=== PATIENT | female | born 1975 | race Asian ===

== ENCOUNTER 2018-06-05 13:20 | Emergency (ER) | payer OTHER ==
[~2018-06-05] VITALS: Ht 160 cm; Wt 60.5 kg
[2018-06-05] MEDS ORDERED: IV NORMAL SALINE 1000ML BAG 1,000 ML IV ONE (13:45)
--- NOTE | 2018-06-05 13:49 | PHYS DOC ---
Past Medical History Past Medical History: No Pertinent History Past Surgical History: Additional Past Surgical Histo: X2 Drug Use: None Adult General Chief Complaint Chief Complaint: ABDOMINAL PAIN HPI HPI 42 y/o female presents to ER for c/o mid epigastric pain x3 days. Pt speaks primarily [place] so Anatoliy is providing some information. Translation phone used for communication. Patient's wanted to be the one using an translation phone so he communicated with his and then via the phone. Patient has had 4 episodes of vomiting since last night. Patient had regular bowel movement last night denying any dark tarry or bloody stools. Patient denies any urinary or vaginal symptoms. Patient denies any other family members with similar illnesses. Patient denies fever, chest pain, shortness of air, or swelling in extremities. She reports she did feel lightheaded at work denying fall or LOC. LMP 05/06/18. Denies any recent travel. Review of Systems Review of Systems Constitutional: Denies fever or chills [] Eyes: Denies change in visual acuity, redness, or eye pain [] HENT: Denies nasal congestion or sore throat [] Respiratory: Denies cough or shortness of breath [] Cardiovascular: Denies CP/palpitations GI: Denies bloody stools or diarrhea. Reports mid epig. pain with intermittent nausea and vomiting : Denies dysuria or hematuria [] Musculoskeletal: Denies back/neck pain or joint pain [] Integument: Denies rash,swelling or skin lesions [] Neurologic: Denies headache, focal weakness or sensory changes. Reports feeling light-headed at work denying LOC or fall All other systems were reviewed and found to be within normal limits, except as documented in this note. Current Medications Current Medications Current Medications Medications (Trade) Dose Ordered Sig/Perri Start Time Stop Time Status Last Admin Dose Admin Fentanyl Citrate (Fentanyl 2ml Vial) 25 mcg 1X ONCE 06/05/18 14:15 06/05/18 14:16 DC 06/05/18 14:19 25 MCG Iohexol (Omnipaque 300 Mg/ml) 75 ml 1X ONCE 06/05/18 15:00 06/05/18 15:01 DC 06/05/18 15:01 75 ML Ondansetron HCl (Zofran) 4 mg 1X ONCE 06/05/18 14:15 06/05/18 14:16 DC 06/05/18 14:18 4 MG Sodium Chloride 1,000 ml @ 1,000 mls/hr 1X ONCE 06/05/18 13:45 06/05/18 14:44 DC 06/05/18 14:02 1,000 MLS/HR Allergies Allergies Allergies Coded Allergies Type Severity Reaction Last Updated Verified tuberculin,PPD,multi-puncture Allergy Intermediate 06/05/18 Yes Physical Exam Physical Exam Constitutional: Well developed, well nourished, no acute distress, non-toxic appearance. [] HENT: Normocephalic, atraumatic, mucous membranes pink/dry, no oral exudates, nose normal. [] Eyes: pupils equal, conjunctiva normal, no discharge. [] Neck: Normal range of motion, no tenderness, supple Cardiovascular:Heart rate regular rhythm, no murmur [] Lungs & Thorax: Bilateral breath sounds clear to auscultation. Resp. equal/ nonlabored Abdomen: Bowel sounds normal, soft-nondistended with no rigidity, tender to palpation mid epigastric, no masses, no pulsatile masses. No rebound tenderness[ ] Skin: Warm, dry, no erythema, no rash. [] Back: No tenderness, no CVA tenderness. [] Extremities: No tenderness, no cyanosis, no clubbing, ROM intact, no edema. [] Neurologic: Alert and oriented X 3, normal motor function, normal sensory function, no focal deficits noted. [] Psychologic: Affect normal, judgement normal, mood normal. [] Current Patient Data Vital Signs Vital Signs Date Time Temp Pulse Resp B/P (MAP) Pulse Ox O2 Delivery O2 Flow Rate FiO2 06/05/18 16:28 66 17 140/94 (109) 98 Room Air 06/05/18 13:32 98.2 98.2 Lab Values Laboratory Tests Test 06/05/18 13:40 06/05/18 13:48 06/05/18 14:05 Urine Collection Type Unknown Urine Color Yellow Urine Clarity Clear Urine pH 6.5 Urine Specific [place] >=1.030 Urine Protein Negative mg/dL (NEG-TRACE) Urine Glucose (UA) Negative mg/dL (NEG) Urine Ketones (Stick) Negative mg/dL (NEG) Urine Blood Negative (NEG) Urine Nitrite Negative (NEG) Urine Bilirubin Negative (NEG) Urine Urobilinogen Dipstick 1.0 mg/dL (0.2 mg/dL) Urine Leukocyte Esterase Negative (NEG) Urine RBC 0 /HPF (0-2) Urine WBC 0 /HPF (0-4) Urine Squamous Epithelial Cells Few /LPF Urine Bacteria 0 /HPF (0-FEW) Urine Mucus Slight /LPF Urine Test Negative (NEG) White Blood Count 9.7 x10^3/uL (4.0-11.0) Red Blood Count 4.58 x10^6/uL (3.50-5.40) Hemoglobin 14.2 g/dL (12.0-15.5) Hematocrit 40.2 % (36.0-47.0) Mean Corpuscular Volume 88 fL (79-100) Mean Corpuscular Hemoglobin 31 pg (25-35) Mean Corpuscular Hemoglobin Concent 35 g/dL (31-37) Red Cell Distribution Width 13.1 % (11.5-14.5) Platelet Count 279 x10^3/uL (140-400) Neutrophils (%) (Auto) 64 % (31-73) Lymphocytes (%) (Auto) 26 % (24-48) Monocytes (%) (Auto) 8 % (0-9) Eosinophils (%) (Auto) 2 % (0-3) Basophils (%) (Auto) 0 % (0-3) Neutrophils # (Auto) 6.2 x10^3uL (1.8-7.7) Lymphocytes # (Auto) 2.5 x10^3/uL (1.0-4.8) Monocytes # (Auto) 0.7 x10^3/uL (0.0-1.1) Eosinophils # (Auto) 0.2 x10^3/uL (0.0-0.7) Basophils # (Auto) 0.0 x10^3/uL (0.0-0.2) Sodium Level 138 mmol/L (136-145) Potassium Level 3.7 mmol/L (3.5-5.1) Chloride Level 103 mmol/L (98-107) Carbon Dioxide Level 27 mmol/L (21-32) Anion Gap 8 (6-14) Blood Urea Nitrogen 17 mg/dL (7-20) Creatinine 0.5 mg/dL (0.6-1.0) L Estimated GFR (Cockcroft-Gault) 134.7 BUN/Creatinine Ratio 34 (6-20) H Glucose Level 92 mg/dL (70-99) Calcium Level 9.3 mg/dL (8.5-10.1) Magnesium Level 1.9 mg/dL (1.8-2.4) Total Bilirubin 0.8 mg/dL (0.2-1.0) Aspartate Amino Transferase (AST) 14 U/L (15-37) L Alanine Aminotransferase (ALT) 25 U/L (14-59) Alkaline Phosphatase 72 U/L (46-116) Troponin I Quantitative < 0.017 ng/mL (0.000-0.055) Total Protein 7.8 g/dL (6.4-8.2) Albumin 3.4 g/dL (3.4-5.0) Albumin/Globulin Ratio 0.8 (1.0-1.7) L Lipase 148 U/L (73-393) Lactic Acid Level 0.4 mmol/L (0.4-2.0) Laboratory Tests 06/05/18 13:48 Laboratory Tests 06/05/18 13:48 EKG EKG EKG obtained 06/05/18 at 1404 Interpreted by ER physician Sinus rhythm Rate 64 No STEMI Radiology/Procedures Radiology/Procedures PROCEDURE: CT ABD PELV W/ IV CONTRST ONLY CT ABD PELV W/ IV CONTRST ONLY Indication: EPIGASTRIC ABD PAIN X 3 DAYS INJ 75ML OMNI 300 NO PREV Exposure: One or more of the following individualized dose reduction techniques were utilized for this examination: 1. Automated exposure control 2. Adjustment of the mA and/or kV according to patient size 3. Use of iterative reconstruction technique. Comparison: None are available. Contrast: Intravenous contrast was given. No oral contrast per request. FINDINGS: Lower thorax: Mild groundglass opacities identified in both lung bases. Liver: Unremarkable Spleen: Unremarkable Pancreas: Unremarkable Adrenals: No evidence of mass. Kidneys: No obvious mass. Urinary tracts: No hydronephrosis. Gallbladder: No calcified stone Lymph nodes: No significant enlargement Vessels: Aorta is nonaneurysmal. GI tract: No evidence of acute colitis. No evidence of bowel obstruction. Appendix is normal. Reproductive organs: Diffuse hypodense tissue within the endometrial canal which measures about 2 cm. Small area of focal hypodense tissue posterior to the uterus on the right may represent the adnexa. Urinary bladder: Unremarkable. Peritoneum: No evidence of pneumoperitoneum. No free fluid. Abdominal wall:Unremarkable Spine: Vertebral body height and alignment are intact. Bones: No destructive process identified. IMPRESSION: 1. Mild groundglass opacities in both lung bases, nonspecific but may be indicative of an inflammatory or infectious process. 2. Endometrial canal distention/hypodensity. This could indicate late proliferative or secretory phase of the menstrual cycle, but other process such as endometritis, endometrial hemorrhage or endometrial mass is possible. Recommend pelvic ultrasound for further evaluation. Electronically signed by: Tej Mlechor MD (06/05/2018 3:37 PM) [id number] DICTATED and SIGNED BY: TEJ MELCHOR MD DATE: 06/05/18 5007 Course & Med Decision Making Course & Med Decision Making Pertinent Labs and Imaging studies reviewed. (See chart for details) Patient reports her symptoms have improved. Patient has had no vomiting while in the ER and on reexam she reports she is feeling hungry. Discussed test results with patient's translating at this time which he feels comfortable with versus using translation phone again. Patient remains nontoxic in appearance and in no visible distress during reexam. Discussed CT results with no acute findings for obstruction, colitis, or abnormal appendix findings. Patient's labs were unremarkable. EKG with no acute ST elevation or STEMI and troponin <0.017. UCG negative with UA negative for leukocytes, nitrates, blood, or ketones. Discussed with improved symptoms plans were for home discharge and if symptoms persist or with any concerns patient to follow-up with her primary care physician in next 3-5 days. Will provide Zofran ODT prescription with discharge paperwork. Education provided on signs and symptoms to return to ER for. Discussed bland diet and slowly advancing as tolerated. Discharge instructions were discussed. Both patient and her feel comfortable with discharge as discussed. Patient is smiling during discharge discussion. CT results noted "Endometrial canal distention/hypodensity"- patient denies any pelvic pain or pressure, vaginal bleeding, or vaginal discharge. Patient is due to start her menstrual cycle as her LMP was 05/06/18. Pt's case and plan of care was discussed with Dr. Jacobs. Staff Physician Addendum: I was working in the ER during the course of this patient's visit. I was available for consultation as needed, but I was not directly involved in the care of this patient. Dragon Disclaimer Dragon Disclaimer This electronic medical record was generated, in whole or in part, using a voice recognition dictation system. Departure Departure Impression: Primary Impression: Abdominal pain Additional Impression: Nausea & vomiting Disposition: 01 HOME, SELF-CARE Condition: STABLE Referrals: KAMRAN HAMLIN (PCP) Patient Instructions: Abdominal Pain (Nonspecific), Nausea and Vomiting Additional Instructions: Drink plenty of water. If symptoms continue follow-up with your primary doctor in next 3-5 days for re- evaluation. Scripts Ondansetron (ZOFRAN ODT) 4 Mg Tab.rapdis 1 TAB SL Q8HRS, #10 TAB for nausea/vomiting Prov: JAS BRASHER APRN 06/05/18 Problem Qualifiers JAS BRASHER APRN Jun 05, 2018 13:49 YOANA JACOBS MD Jun 12, 2018 06:46
[2018-06-05 14:07] LABS: BASO % 0 % (0-3); EOS # 0.2 x10^3/uL (0.0-0.7); EOS % 2 % (0-3); HEMATOCRIT 40.2 % (36.0-47.0); HEMOGLOBIN 14.2 g/dL (12.0-15.5); LYMPH # 2.5 x10^3/uL (1.0-4.8); LYMPH % 26 % (24-48); MEAN CORPUSCULAR HEMOGLOBIN 31 pg (25-35); MEAN CORPUSCULAR HGB CONC 35 g/dL (31-37); MEAN CORPUSCULAR VOLUME 88 fL (79-100); MONO # 0.7 x10^3/uL (0.0-1.1); MONO % 8 % (0-9); NEUT # 6.2 x10^3uL (1.8-7.7); NEUT % 64 % (31-73); PLATELET COUNT 279 x10^3/uL (140-400); RED BLOOD COUNT 4.58 x10^6/uL (3.50-5.40); RED CELL DISTRIBUTION WIDTH 13.1 % (11.5-14.5); WHITE BLOOD COUNT 9.7 x10^3/uL (4.0-11.0)
[2018-06-05 14:08] LABS: BILIRUBIN,URINE NEGATIVE (NEG); CLARITY,URINE CLEAR; COLOR,URINE YELLOW; NITRITE,URINE NEGATIVE (NEG); PH,URINE 6.5; PROTEIN,URINE NEGATIVE (NEG-TRACE)
[2018-06-05 14:12] LABS: U PREG PATIENT NEGATIVE (NEG)
[2018-06-05] MEDS ORDERED: fentaNYL PF VIAL 100 MCG/2 ML VIAL IV ONE (14:15)
[2018-06-05] MEDS ORDERED: ONDANSETRON PF 4 MG/2 ML VIAL. IV ONE (14:15)
[2018-06-05 14:16] LABS: BACTERIA,URINE 0 /HPF (0-FEW); RBC,URINE 0 /HPF (0-2); SQUAMOUS EPITHELIAL CELL,UR FEW /LPF; WBC,URINE 0 /HPF (0-4)
--- NOTE | 2018-06-05 14:16 | EKG ---
[facility] [address] [place] [address] Test Date: 2018-06-05 Test Time: 14:04:19 Pat Name: JAROCHO MONTANO Department: Room: Gender: F [employer]: : 1975 Requested By: JAS BRASHER Order Number: [id number] Reading MD: Jose Talley MD Measurements Intervals Phelps Rate: 64 P: -41 RI: 128 QRS: 60 QRSD: 82 T: 24 QT: 396 QTc: 413 Interpretive Statements SINUS RHYTHM Electronically Signed On 06-08-2018 14:05:21 WAIST FITTER by Jose Talley MD
[2018-06-05 14:19] LABS: CALCIUM 9.3 mg/dL (8.5-10.1); CREATININE 0.5 mg/dL (0.6-1.0); GFR 134.7; POTASSIUM 3.7 mmol/L (3.5-5.1)
[2018-06-05 14:25] LABS: ALBUMIN 3.4 g/dL (3.4-5.0); ALBUMIN/GLOBULIN RATIO 0.8 (1.0-1.7); MAGNESIUM 1.9 mg/dL (1.8-2.4); TOTAL BILIRUBIN 0.8 mg/dL (0.2-1.0); TOTAL PROTEIN 7.8 g/dL (6.4-8.2)
[2018-06-05] MEDS ORDERED: IOHEXOL 300 MG/ML 100ML VIAL. IV ONE (15:00)
--- NOTE | 2018-06-05 15:40 | RAD ---
CT ABD PELV W/ IV CONTRST ONLY Indication: EPIGASTRIC ABD PAIN X 3 DAYS INJ 75ML OMNI 300 NO PREV Exposure: One or more of the following individualized dose reduction techniques were utilized for this examination: 1. Automated exposure control 2. Adjustment of the mA and/or kV according to patient size 3. Use of iterative reconstruction technique. Comparison: None are available. Contrast: Intravenous contrast was given. No oral contrast per request. FINDINGS: Lower thorax: Mild groundglass opacities identified in both lung bases. Liver: Unremarkable Spleen: Unremarkable Pancreas: Unremarkable Adrenals: No evidence of mass. Kidneys: No obvious mass. Urinary tracts: No hydronephrosis. Gallbladder: No calcified stone Lymph nodes: No significant enlargement Vessels: Aorta is nonaneurysmal. GI tract: No evidence of acute colitis. No evidence of bowel obstruction. Appendix is normal. Reproductive organs: Diffuse hypodense tissue within the endometrial canal which measures about 2 cm. Small area of focal hypodense tissue posterior to the uterus on the right may represent the adnexa. Urinary bladder: Unremarkable. Peritoneum: No evidence of pneumoperitoneum. No free fluid. Abdominal wall:Unremarkable Spine: Vertebral body height and alignment are intact. Bones: No destructive process identified. IMPRESSION: 1. Mild groundglass opacities in both lung bases, nonspecific but may be indicative of an inflammatory or infectious process. 2. Endometrial canal distention/hypodensity. This could indicate late proliferative or secretory phase of the menstrual cycle, but other process such as endometritis, endometrial hemorrhage or endometrial mass is possible. Recommend pelvic ultrasound for further evaluation. Electronically signed by: Tej Melchor MD (06/05/2018 3:37 PM) [id number]
[2018-06-05] MEDS ORDERED: ONDA4TAB10 SL (16:07)
[2018-06-05 16:28] VITALS: BP 140/94
== END 2018-06-05 16:38 | disposition home or self-care (01) ==
LOC: ER 13:20
DX: R10.13 Epigastric pain (principal); R11.2 Nausea with vomiting, unspecified; R42 Dizziness and giddiness; Z88.7 Allergy status to serum and vaccine
CPT/HCPCS: 36415; 74177; 80053; 81001; 81025; 83605; 83690; 83735; 84484; 85025; 93005; 96361; 96374; 96375; 99285; J2405; J3010; J7030; Q9967